=== PATIENT | male | born 1960 | race Caucasian/White ===

== ENCOUNTER 2024-11-15 15:55 | Day surgery (SDC) | payer MEDICARE ==
[2024-11-15] MEDS ORDERED: LIDOCAINE HCL 1% AMPUL 5 ML IJ ONE (15:56)
[2024-11-15] MEDS ORDERED: Depo-Medrol 40 MG/ML IM ONE (15:56)
--- NOTE | 2024-11-15 20:53 | XRAY ---
Indication: Bilateral costochondral junction injection. Intraoperative fluoroscopy provided for 22 seconds. 5 digital spot image submitted for interpretation demonstrates needle tips projecting lateral to unknown lower ribs bilaterally. Additional needle tip projects right lateral to T6-T7 interspace. Correlate with intraoperative findings/report.
--- NOTE | 2024-11-16 08:50 | XRAY ---
22 seconds of fluoroscopy were used in surgery for bilateral costochondral junction injections.
== END 2024-11-15 18:18 | disposition home or self-care (01) ==
LOC: SDC-PAIN 15:55
PROVIDERS: ATTEND Psychiatry & Neurology Pain Medicine
DX: M94.0 Chondrocostal junction syndrome [Tietze] (principal)
CPT/HCPCS: 64420; 64421; 71110; 77002